=== PATIENT | female | born 1990 | race Caucasian/White ===

== ENCOUNTER 2020-02-05 18:30 | Inpatient (IN) | payer MEDICAID ==
[~2020-02-05] VITALS: Ht 152.4 cm; Wt 69.4 kg
[2020-02-05] MEDS ORDERED: FERR-71 PO (21:52)
[2020-02-05] MEDS ORDERED: DEXT 5%/LR + PITOCIN 20UNITS/L 1,000 ML IV SCH (21:52)
[2020-02-05] MEDS ORDERED: PREN1TAB78 PO (21:52)
[2020-02-05] MEDS ORDERED: LIDOCAINE HCL 1% 20ML VIAL (Pyxis) INJ INFIL SCH (22:00)
[2020-02-05] MEDS ORDERED: PENICILLIN G POTASSIUM 2.5 MMU in DEXTROSE 5% WATER 50 ML IV SCH (22:00)
[2020-02-05] MEDS ORDERED: RHO(D) IMMUNE GLOBULIN 300 MCG/SYR IM NR (22:11)
[2020-02-05] MEDS ORDERED: DEXT 5%/LACTATED RINGERS 1,000 ML IV SCH (22:15)
[2020-02-06] MEDS ORDERED: CLINDAMYCIN 900 MG PREMIX 50 ML IV SCH (01:00)
[2020-02-06 02:02] LABS: BASOPHILS % 0.6 % (0.0-2.0); CLARITY URINE CLEAR (CLEAR); COLOR URINE DARK YELLOW (YELLOW); EOSINOPHILS % 0.5 % (0.0-5.0); HEMATOCRIT. 34.9 % (36.0-48.0); HEMOGLOBIN. 11.9 g/dL (12.0-16.0); KETONES URINE TRACE (NEGATIVE); LEUKOCYTE ESTERASE URINE 2+ (NEGATIVE); LYMPHOCYTES % 23.3 % (20.0-50.0); MEAN CORPUSCULAR HEMOGLOBIN 32.5 pg (28.0-32.0); MEAN CORPUSCULAR VOLUME 95.2 fL (81.0-99.0); NEUTROPHILS % 68.6 % (40.0-76.0); NITRITE URINE NEGATIVE (NEGATIVE); OCCULT BLOOD URINE NEGATIVE (NEGATIVE); PLATELET 164 x1000/uL (130-400); PROTEIN URINE NEGATIVE (NEGATIVE); RED BLOOD CELL COUNT 3.66 mill/uL (4.2-5.4); RED CELL DISTRIBUTION WIDTH 14.1 % (11.6-14.6)
[2020-02-06 02:08] LABS: INR 0.9; PARTIAL THROMBOPLASTIN TIME 25.2 sec (23.4-31.0); PROTHROMBIN TIME 9.4 sec (9.6-11.0)
[2020-02-06 02:22] LABS: *AMPHETAMINES SCREEN URINE NEGATIVE (NEGATIVE); *BARBITURATES SCREEN URINE NEGATIVE (NEGATIVE); *BENZODIAZEPINES SCREEN URINE NEGATIVE (NEGATIVE); *COCAINE SCREEN URINE NEGATIVE (NEGATIVE)
[2020-02-06 02:23] LABS: CANNABINOID URINE SCREEN NEGATIVE (NEGATIVE); METHADONE URINE SCREEN NEGATIVE (NEGATIVE); OPIATES URINE SCREEN NEGATIVE (NEGATIVE); PHENCYCLIDINE URINE SCREEN NEGATIVE (NEGATIVE)
[2020-02-06 03:32] LABS: HEPATITIS B SURFACE ANTIGEN NEGATIVE
[2020-02-06] MEDS ORDERED: BUTORPHANOL TARTRATE 2 MG/ML VIAL IV PRN (06:00)
[2020-02-06 10:00] VITALS: BP 90/69
[2020-02-06 10:30] VITALS: BP 105/54
[2020-02-06 16:00] VITALS: BP 114/64
[2020-02-06] MEDS ORDERED: TETANUS, DIPHTHERIA, PERTUSSIS VAC/PF 0.5ML (>7YR OLD) IM ONE (16:15)
[2020-02-06 22:00] VITALS: BP 109/61
[2020-02-07] MEDS ORDERED: DEXT 5%/LR + PITOCIN 20UNITS/L 1,000 ML IV SCH (00:12)
[2020-02-07] MEDS ORDERED: LANOLIN OINT 7GM TUBE TOP PRN (00:15)
[2020-02-07] MEDS ORDERED: IBUPROFEN 800MG TABLET PO PRN (00:15)
[2020-02-07] MEDS ORDERED: GLYCERIN/WITCH HAZEL LEAF MEDICATED PAD TOP PRN (00:15)
[2020-02-07] MEDS ORDERED: HEMORRHOIDAL SUPP PR PRN (00:15)
[2020-02-07] MEDS ORDERED: ACETAMINOPHEN WITH CODEINE 300/30MG TABLET PO PRN ×2 (00:15)
[2020-02-07] MEDS ORDERED: BISACODYL 10MG SUPP PR PRN (00:15)
[2020-02-07] MEDS ORDERED: IBUPROFEN 400MG TABLET PO PRN (00:15)
[2020-02-07] MEDS ORDERED: DIPHENHYDRAMINE 25MG CAPSULE PO PRN (00:15)
[2020-02-07] MEDS ORDERED: BENZOCAINE/LANOLIN/ALOE VERA SPRAY TOP PRN (00:15)
[2020-02-07 06:00] VITALS: BP 105/65
[2020-02-07 07:15] LABS: BASOPHILS % 0.6 % (0.0-2.0); EOSINOPHILS % 1.3 % (0.0-5.0); HEMATOCRIT. 32.4 % (36.0-48.0); HEMOGLOBIN. 11.1 g/dL (12.0-16.0); LYMPHOCYTES % 26.7 % (20.0-50.0); MEAN CORPUSCULAR HEMOGLOBIN 32.5 pg (28.0-32.0); MEAN CORPUSCULAR VOLUME 95.2 fL (81.0-99.0); MEAN PLATELET VOLUME 9.9 fl (7.4-10.4); MONOCYTES % 6.8 % (2.0-8.0); NEUTROPHILS % 64.6 % (40.0-76.0); PLATELET 149 x1000/uL (130-400); RED CELL DISTRIBUTION WIDTH 13.9 % (11.6-14.6)
[2020-02-07] MEDS ORDERED: MAGNESIUM/ALUMINUM HYDROXIDE/SIMETHICONE 30ML UDC PO SCH (07:30)
[2020-02-07] MEDS ORDERED: SIMETHICONE 80MG TABLET CHEW PO SCH (08:00)
[2020-02-07 08:50] VITALS: BP 113/73
[2020-02-07] MEDS ORDERED: PRENATAL VIT/FE FUMARATE/FA TABLET PO SCH (09:00)
[2020-02-07] MEDS ORDERED: DOCUSATE SODIUM 100MG CAPSULE PO SCH (21:00)
[2020-02-08] MEDS ORDERED: FERROUS SULFATE 325MG TABLET PO SCH (07:30)
== END 2020-02-07 14:30 | disposition home or self-care (01) | DRG 560 ==
LOC: OBSVTOIN 18:30 → 8 EST LDRP 18:30 → 8EST 02-06 09:45
PROVIDERS: ADMIT Obstetrics & Gynecology; ATTEND Obstetrics & Gynecology
PROC: 10E0XZZ Delivery of Products of Conception, External Approach (ICD-10-PCS; principal; 2020-02-06)
PROC: 0KQM0ZZ Repair Perineum Muscle, Open Approach (ICD-10-PCS; 2020-02-06)
PROC: 3E0R3BZ Introduction of Anesthetic Agent into Spinal Canal, Percutaneous Approach (ICD-10-PCS; 2020-02-06)
PROC: 00HU33Z Insertion of Infusion Device into Spinal Canal, Percutaneous Approach (ICD-10-PCS; 2020-02-06)
DX: O60.14X0 Preterm labor third trimester with preterm delivery third trimester, not applicable or unspecified (principal); K83.1 Obstruction of bile duct; O77.0 Labor and delivery complicated by meconium in amniotic fluid; O26.62 Liver and biliary tract disorders in childbirth; O70.1 Second degree perineal laceration during delivery; Z37.0 Single live birth; Z88.0 Allergy status to penicillin; Z3A.35 35 weeks gestation of pregnancy
CPT/HCPCS: 36415; 76805; 76818; 80305; 81003; 85025; 86592; 86703; 86762; 86850; 86900; 87340; 90715; J0595; J2590; J3490